=== PATIENT | male | born 1975 | race Caucasian/White ===

== ENCOUNTER 2022-02-11 10:23 | Emergency (ER) | payer OTHER ==
[~2022-02-11 10:23] MED LIST: GLIMEPIRIDE4 MG PO; ONDANSETRON ODT4 MG PO; PANTOPRAZOLE SO40 MG PO; TRULICITY1.5 MG/0.5 SC; VYVANSE60 MG PO
[2022-02-11 11:52] LABS: BILIRUBIN NEGATIVE (NEGATIVE); BLOOD NEGATIVE Ery/uL (NEGATIVE); CLARITY CLEAR (CLEAR); COLOR YELLOW (YELLOW); GLUCOSE (U) NORMAL (NORMAL); LEUKOCYTES NEGATIVE Leu/uL (NEGATIVE); NITRITE NEGATIVE (NEGATIVE); PROTEIN NEGATIVE (NEGATIVE); UROBILINOGEN 0.2 mg/dL (0.2-1.0); pH 7.5 (5.0-9.0)
== END 2022-02-11 14:34 | disposition home or self-care (01) ==
LOC: FER 10:23
PROVIDERS: Emergency Medicine
DX: N20.2 Calculus of kidney with calculus of ureter (principal); E11.9 Type 2 diabetes mellitus without complications; Z91.012 Allergy to eggs; Z88.7 Allergy status to serum and vaccine; Z28.310 Unvaccinated for COVID-19
CPT/HCPCS: 81003

== ENCOUNTER 2022-02-17 02:43 | Emergency (ER) | payer OTHER ==
[2022-02-17 03:04] LABS: BILIRUBIN NEGATIVE (NEGATIVE); BLOOD 2+ Ery/uL (NEGATIVE); CLARITY CLEAR (CLEAR); COLOR YELLOW (YELLOW); GLUCOSE (U) TRACE mg/dL (NORMAL); LEUKOCYTES NEGATIVE Leu/uL (NEGATIVE); NITRITE NEGATIVE (NEGATIVE); PROTEIN NEGATIVE (NEGATIVE); UROBILINOGEN 0.2 mg/dL (0.2-1.0); pH 7.5 (5.0-9.0)
[2022-02-17 03:08] LABS: BASOPHIL 0.2 % (0-2); EOSINOPHIL 0.4 % (0-5); HCT 48.2 % (42.0-52.0); HGB 16.2 g/dl (13.2-18.0); LYMPHOCYTE 9.6 % (15-48); MCHC 33.6 g/dL (32.0-36.0); MCV 86.4 fL (78.0-100.0); MONOCYTE 4.3 % (0-12); MPV 12.6 fL (6.0-9.5); NEUTROPHIL 84.2 % (41-80); NRBC 0; PLT 156 K/uL (150-400); RBC 5.58 M/uL (4.70-6.00); WBC 16.2 K/uL (4.0-10.5)
[2022-02-17 03:18] LABS: AMORPHOUS URATES CRYSTALS LARGE; SQUAMOUS EPITHELIAL CELLS RARE
[2022-02-17 03:23] LABS: ALBUMIN 4.6 g/dL (3.4-5.0); BILIRUBIN - TOTAL 0.3 mg/dL (0.2-1.0); BUN/CREAT RATIO (CALC) 12.7 RATIO; CREATININE 1.18 mg/dL (0.67-1.17); GLOBULIN (CALCULATION) 3.3 g/dL; TOTAL PROTEIN 7.9 g/dL (6.4-8.2)
[2022-02-17] MEDS ORDERED: FLOMAX0.4 MG PO (04:05)
[2022-02-17] MEDS ORDERED: ONDANSETRON ODT4 MG PO (04:05)
[2022-02-17] MEDS ORDERED: NAPROXEN500 MG PO (04:05)
[2022-02-17] MEDS ORDERED: PERCOCET 5-3251 EACH PO (04:05)
[2022-02-17] MEDS ORDERED: CEFDINIR300 MG PO (04:15)
== END 2022-02-17 05:05 | disposition home or self-care (01) ==
LOC: FER 02:43
PROVIDERS: Internal Medicine
DX: N13.2 Hydronephrosis with renal and ureteral calculous obstruction (principal); F17.210 Nicotine dependence, cigarettes, uncomplicated; Z28.310 Unvaccinated for COVID-19
CPT/HCPCS: 36415; 80053; 81001; 83690; 85025; 96372; J0696; J1170; J2405; J7030

== ENCOUNTER 2022-03-11 20:45 | Day surgery (SDC) | payer OTHER ==
[2022-03-11 19:44] LABS: BASOPHIL 0.4 % (0-2); EOSINOPHIL 0.6 % (0-5); HCT 45.8 % (42.0-52.0); HGB 15.6 g/dl (13.2-18.0); LYMPHOCYTE 15.2 % (15-48); MCH 29.5 pg (25.0-31.0); MCHC 34.1 g/dL (32.0-36.0); MCV 86.7 fL (78.0-100.0); MONOCYTE 4.5 % (0-12); MPV 12.1 fL (6.0-9.5); NEUTROPHIL 78.9 % (41-80); NRBC 0; PLT 189 K/uL (150-400); RBC 5.28 M/uL (4.70-6.00); RDW 13.1 % (11.5-14.0); WBC 11.4 K/uL (4.0-10.5)
[2022-03-11 20:07] LABS: CREATININE 0.86 mg/dL (0.67-1.17); POTASSIUM 3.9 mmol/L (3.5-5.1)
[~2022-03-11 20:45] MED LIST changes: +CEFDINIR300 MG PO; +FLOMAX0.4 MG PO; +NAPROXEN500 MG PO; +PERCOCET 5-3251 EACH PO
== END 2022-03-12 00:30 | disposition home or self-care (01) ==
LOC: FER 20:45 → FOR 21:48 → FTCU 23:16 → FOR 03-12 00:30
PROVIDERS: Internal Medicine
DX: T18.128A Food in esophagus causing other injury, initial encounter (principal); K22.2 Esophageal obstruction; K21.00 Gastro-esophageal reflux disease with esophagitis, without bleeding; K44.9 Diaphragmatic hernia without obstruction or gangrene; R73.03 Prediabetes; X58.XXXA Exposure to other specified factors, initial encounter; Z88.7 Allergy status to serum and vaccine; Z91.012 Allergy to eggs; Z20.822 Contact with and (suspected) exposure to COVID-19
CPT/HCPCS: 36415; 70491; 71260; 80048; 85025; 96372; J1610; J2250; J2405; J2704; J7120; Q9967; U0002

== ENCOUNTER → 2022-04-11 | Day surgery (SDC) | payer OTHER ==
[~2022-04-11] VITALS: Ht 188 cm; Wt 92.8 kg
[~2022-04-11] MED LIST changes: +ASCORBIC ACID500 MG PO; +VITAMIN D310 MC4 PO
== END | disposition home or self-care (01) ==
LOC: FAS 10:58
DX: K31.7 Polyp of stomach and duodenum (principal); K22.2 Esophageal obstruction; K29.50 Unspecified chronic gastritis without bleeding; K21.00 Gastro-esophageal reflux disease with esophagitis, without bleeding; K44.9 Diaphragmatic hernia without obstruction or gangrene; E11.9 Type 2 diabetes mellitus without complications; Z91.012 Allergy to eggs
CPT/HCPCS: J2704; J7120